=== PATIENT | female | born 1975 | race Caucasian/White ===

== ENCOUNTER → 2023-07-20 08:08 | Outpatient (REF) | payer OTHER, SELFPAY | LOC: HWRAD 08:08 | PROVIDERS: ATTENDING PHYSICIAN Neurological Surgery; FAMILY PHYSICIAN Family Medicine | DX: D32.0 Benign neoplasm of cerebral meninges (principal) | CPT/HCPCS: 70450 ==

== ENCOUNTER 2024-07-14 15:19 | Emergency (ER) | payer OTHER, SELFPAY ==
[2024-07-14 15:21] VITALS: BP 138/88
[2024-07-14 15:38] LABS: % Basophils 0.4 % (0-2); % Eosinophils 1.6 % (0-6); % Immature Granulocytes 0.3 % (0-0.5); % Lymphocytes 33.1 % (20.5-51.1); % Monocytes 6.5 % (1.7-9.3); % Neutrophils 58.1 % (42.2-75.2); Absolute Eosinophils 0.1 10^3/uL (0-0.7); Absolute Lymphocytes 2.3 10^3/uL (1.2-3.4); Absolute Monocytes 0.4 10^3/uL (0.1-0.6); Hematocrit 39.5 % (37.0-47.0); Hemoglobin 13.7 g/dL (12.0-16.0); Mean Corp Hgb Conc. 34.7 g/dL (33.0-37.0); Mean Corpuscular Hgb 28.9 pg (27.0-31.0); Mean Corpuscular Volume 83.3 fL (81.0-99.0); Mean Platelet Volume 10.2 fL (7.4-10.4); Nucleated Red Blood Cells % 0 %; Platelet Count 230 10^3/uL (130-400); Red Blood Cell Count 4.74 10^6/uL (4.20-5.40); Red Cell Dist. Width 12.1 % (11.5-14.5); White Blood Cell Count 6.8 10^3/uL (4.8-10.8)
[2024-07-14 15:54] LABS: ALT (SGPT) 24 U/L (0-35); AST (SGOT) 21 U/L (14-36); Albumin 4.6 g/dl (3.5-5.0); Alkaline Phosphatase 75 U/L (38-126); Blood Urea Nitrogen 13 mg/dl (7-17); Calcium 9.4 mg/dl (8.4-10.2); Carbon Dioxide 25 mmol/L (22-30); Chloride 108 mmol/L (98-107); Glucose 93 mg/dl (70-99); Potassium 4.4 mmol/L (3.5-5.1); Sodium 140 mmol/L (135-145); Total Bilirubin 0.7 mg/dl (0.2-1.3); Total Protein 7.2 g/dl (6.3-8.2); eGFR > 60.00
[2024-07-14 16:02] LABS: Troponin I < 0.012 ng/ml
--- NOTE | 2024-07-14 19:02 | ED.GENMED ---
History of Present Illness
General
Chief Complaint: Cardiac Symptoms
Source: patient
Exam Limitations: none
Time Seen by Provider: 07/14/24 18:56
History of Present Illness
History of Present Illness:
See MDM
Past History
Past History
ED Past Medical History: GERD
ED Past Surgical History:
Social History
Tobacco: Non-smoker
Living: with family
Employment: Employed
Phy Exam
Physical Exam
Physical Exam:
See MDM
Course
Orders/Labs/Results
Orders:
Orders
07/14/24 15:23
Electrocardiogram (*1) Urgent
Reason for Study: Chest Pain
Chest [CR Chest - 2 Views ] Urgent
Comment:
Reason For Exam: chest pain
07/14/24 15:24
EKG- Treatment ONCE
07/14/24 15:30
Complete Blood Count/With Diff Urgent
Comprehensive Metabolic Panel Urgent
Troponin I Urgent
Abnormal Lab Results
07/14/24
15:30
Chloride 108 H mmol/L
(98-107)
07/14/24 15:30
07/14/24 15:30
Vital Signs
Initial and Last Documented VS:
Initial Vital Signs
Temp Pulse Resp BP Pulse Ox
98.2 F 58 20 138/88 99
07/14/24 15:21 07/14/24 15:21 07/14/24 15:21 07/14/24 15:21 07/14/24 15:21
Last Documented Vital Signs
Temp Pulse Resp BP Pulse Ox
98.4 F 66 18 115/70 98
07/14/24 19:55 07/14/24 19:55 07/14/24 19:55 07/14/24 19:55 07/14/24 19:55
MDM/Problems Addressed
Differential Diagnosis Includes:
HPI and MDM Narrative:
48-year-old female presenting for 3 weeks of left chest burning sensation. Patient does acknowledge that it is mostly at nighttime and awake throughout but she does state it is random throughout the day 2. Symptoms are not related to exertion.
She endorses improvement of symptoms with some exertion. Given the ongoing symptoms, she came in the emergency department for evaluation. She does have PCP follow-up but not until a few more weeks. On exam, she is well-appearing nontoxic. EKG
done prior to my assessment showing a sinus bradycardia without ischemic changes. Blood work and troponin were ordered which showed no clinically relevant abnormalities
I started to question reflux more but patient states this did not feel like her reflux. Will obtain chest x-ray but if that is also normal, will have her follow-up as an outpatient
Physical exam
General: Well appearing and non-toxic
HEENT: protecting airway
Neck: appears supple
CV: No evidence of cyanosis. Regular rate and rhythm
Resp: No accessory muscle use. Lungs clear
Abd: Non-distended
Extremities: No deformities. No leg edema
Neuro: alert
Psych: Normal affect
Skin: Intact
Problems Addressed including Acute and Chronic Conditions affecting care:
1. Left chest burning
Acuity: acute
Prognosis: stable
Details: EKG and troponin negative. Will obtain chest x-ray.
Updates
Chest x-ray clear. Patient dominic well-appearing nontoxic. She feels comfortable going home. Discussed return precautions
Differential Diagnosis (but not limited to): noncardiac chest pain, GERD,Muscle strain
Testing considered: D-dimer but she is neither tachycardic nor hypoxic
Drug therapy (if applicable): OTC meds, please see d/c instruction regarding Rx drugs
Amount and/or Complexity of Data Reviewed
Clinical info obtained from: Patient
External data reviewed: N/A
Labs I independently reviewed (but not limited to): Troponin normal
Radiology: N/A
Pulse Ox: not hypoxic
EKG independently reviewed: Sinus rhythm, normal axis, no STEMI
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
Critical Care: N/A
Risk of Complication:
Social Determinants of health: Good social support
Discussed with other providers: N/A
Escalation of Care includes Admit/Obs: After being observed in the Emergency Department, pt stable for discharge.
Occasional wrong word or 'sound a like' substitutions may have occurred due to the inherent limitations of voice recognition software. Read the chart carefully and recognize, using context, where substitutions have occurred.
*Critical Care Note
Total Time (30-74mins, 75-104mins- exclusive of procedures): Not Applicable
ED Attending Note
-
Portions of this chart may have been created with voice recognition software.� Occasional wrong word or��sound alike� substitutions may have occurred due to the inherent limitations of voice recognition software.
Discharge Plan
Departure
Patient Disposition: Home (Routine Discharge)
Date of Disposition: 07/14/24
Time of Disposition: 20:17
Patient with high blood pressure during this ER visit?: No
Discharge Problem:
Burning chest pain
Prescriptions:
No Action
metaxalone [Skelaxin] 800 MG tablet
800 mg PO TIDPRN PRN (Reason: pain/spasm) Qty: 15 0RF
Referrals:
Patel Vincent MD [Active] -
Emanuel Dove DO [Family Provider] -
Activity Restrictions/Additional Instructions:
Please return for any worsening symptoms.
You may return at any time if you have further concerns.
Please follow up with your doctor at the first available appointment, preferably this week.
Please make an appointment to see the shipping lead.
Thank you for choosing [facility].
Interventions
Interventions:
*Risk Screen - Suicide Last Done: 07/14/24 19:56
*General Assessment Last Done: 07/14/24 15:21
*Neglect/Abuse Screening Last Done: 07/14/24 19:56
*ED- Fall Risk Assessment Last Done: 07/14/24 19:56
*ED COVID-19 Vaccine History Last Done: 07/14/24 19:56
ED- Pulmonary Assessment Last Done: 07/14/24 19:56
ED- Cardiac Assessment Last Done: 07/14/24 19:56
Discharge Date and Time
Print Language: LATVIAN
[2024-07-14 19:55] VITALS: BP 115/70
== END 2024-07-14 20:49 | disposition home or self-care (01) ==
LOC: EMR 15:19
PROVIDERS: EMERGENCY PHYSICIAN Student in an Organized Health Care Education/Training Program; FAMILY PHYSICIAN Family Medicine
DX: R07.9 Chest pain, unspecified (principal); R00.1 Bradycardia, unspecified; R20.8 Other disturbances of skin sensation
CPT/HCPCS: 99285; 71046; 80053; 84484; 85025; 93005

== ENCOUNTER 2024-12-21 15:02 | Emergency (ER) | payer OTHER, SELFPAY ==
[2024-12-21 15:04] VITALS: BP 123/88
--- NOTE | 2024-12-21 18:38 | ED.GENMED ---
History of Present Illness
General
Chief Complaint: Fall
Source: patient and spouse
Time Seen by Provider: 12/21/24 18:02
History of Present Illness
History of Present Illness:
49-year-old female with past medical history of migraines presents to the emergency department for evaluation after she accidentally fell yesterday on the stairs falling backwards striking the back of her head on the ground and injuring her right
shoulder. Patient states she felt very dazed following the event but notes she did not lose consciousness. She has since had a mild headache, mild fatigue and some nausea. She denies any vomiting, severe headache, focal weakness or numbness or
any other injuries. Patient notes that she is having trouble range of motion in the right shoulder, recently recovered from a previous injury to the right shoulder that had diminished range of motion. Patient is not on any anticoagulants. Denies
any previous history of head injury.
Past History
Past History
ED Past Medical History: GERD
ED Past Surgical History: and Gynecological
Social History
Tobacco: Non-smoker
Alcohol: None
Drug: None
Living: with family
Employment: Employed
Review of Systems
Review of Systems
All Other Systems: ROS reviewed and negative except as documented in HPI and ROS
Phy Exam
Physical Exam
Physical Exam:
GENERAL: Alert , in no apparent distress
EYE: conjunctiva clear
Head: Normocephalic atraumatic
NECK: Supple,
ENT: mmm.
LUNGS: no acute respiratory distress
NEUROLOGICAL: Alert and oriented
SKIN: Warm and dry, skin intact.
MUSCULOSKELETAL: Right upper extremity: No obvious deformity, erythema, edema, ecchymosis, abrasions or lacerations. No focal areas of tenderness. Patient allows for passive range of motion up to about 90 degrees before pain starts getting more
intense. She allows for full active and passive range of motion of the elbow, wrist and digits with no pain. Extremity is otherwise warm and well-perfused.
PSYCH: Normal and appropriate interaction.
Scores
Heart Failure Risk
Heart Failure Risk Score: Not Applicable
Heart Score for Chest Pain Patients
STEMI patient?: Not applicable
Withdrawal Assessment of Alcohol
Withdrawal Assessment Completed?: Not applicable
Course
Orders/Labs/Results
Orders:
Orders
12/21/24 18:23
Sling Right-Treatment ONCE
CR Shoulder, Trauma - Right Urgent
Comment:
Reason For Exam: fall, pain
Vital Signs
Initial and Last Documented VS:
Initial Vital Signs
Pulse Resp BP Pulse Ox
76 16 123/88 100
12/21/24 15:04 12/21/24 15:04 12/21/24 15:04 12/21/24 15:04
Last Documented Vital Signs
Pulse Resp BP Pulse Ox
76 16 123/88 100
12/21/24 15:04 12/21/24 15:04 12/21/24 15:04 12/21/24 18:40
MDM/Problems Addressed
Differential Diagnosis Includes:
Concussion
Contusion
ICH
Calvarial Fracture
Shoulder sprain
Humeral fracture
AC sprain
Clavicle fracture
MDM/Problems Addressed:
49-year-old female presenting to the ER for evaluation following an accidental fall yesterday noting she slipped down couple of steps striking the back of her head and right shoulder on the ground. No LOC, no vomiting, no visual changes no
anticoagulant use. We had extensive conversation about risk versus benefit of CT imaging and with shared decision making the patient ultimately decided she did not want to pursue CT imaging at this time which I do think is reasonable given the lack
of abnormal aforementioned symptoms. Will obtain an x-ray for further evaluation of the shoulder. Sling ordered. Outpatient ortho follow up
*Radiology
Radiology exam reviewed: preliminary read by ED provider (No fracture, no dislocation)
*Pulse Oximetry
SaO2: 100
Oxygen Mode of Delivery: Room air
Patient hypoxic: no
*Critical Care Note
Total Time (30-74mins, 75-104mins- exclusive of procedures): Not Applicable
Patient Management
Escalation/DeEscalation of care consider admission/obs:
Patient stable for discharge home, aware of return precautions.
ED Attending Note
-
Portions of this chart may have been created with voice recognition software.� Occasional wrong word or��sound alike� substitutions may have occurred due to the inherent limitations of voice recognition software.
Discharge Plan
Departure
Patient Disposition: Home (Routine Discharge)
Date of Disposition: 12/21/24
Time of Disposition: 18:39
Patient with high blood pressure during this ER visit?: No
Discharge Problem:
Fall down stairs, Concussion, Sprain of right shoulder
Instructions: Concussion, Adult (DC)
Prescriptions:
No Action
metaxalone [Skelaxin] 800 MG tablet
800 mg PO TIDPRN PRN (Reason: pain/spasm) Qty: 15 0RF
Referrals:
Emanuel Dove DO [Family Provider, Family Practice]
Stand Alone Forms: Return to Work
Interventions
Interventions:
*Risk Screen - Suicide Last Done: 12/21/24 18:46
*General Assessment Last Done: 12/21/24 18:46
*Neglect/Abuse Screening Last Done: 12/21/24 18:46
*ED COVID-19 Vaccine History Last Done: 12/21/24 18:46
*ED Influenza Vaccine History Last Done: 12/21/24 18:46
ED-Musculoskeletal Assessment Last Done: 12/21/24 18:48
ED- Neurological Assessment Last Done: 12/21/24 18:46
ED-Skin Assessment Last Done: 12/21/24 18:48
Discharge Date and Time
Print Language: TAJIK
== END 2024-12-21 18:49 | disposition home or self-care (01) ==
LOC: EMR 15:02
PROVIDERS: EMERGENCY PHYSICIAN Student in an Organized Health Care Education/Training Program; FAMILY PHYSICIAN Family Medicine
DX: S06.0X0A Concussion without loss of consciousness, initial encounter (principal); R11.0 Nausea; R53.83 Other fatigue; S43.401A Unspecified sprain of right shoulder joint, initial encounter; W10.9XXA Fall (on) (from) unspecified stairs and steps, initial encounter; G43.909 Migraine, unspecified, not intractable, without status migrainosus; K21.9 Gastro-esophageal reflux disease without esophagitis
CPT/HCPCS: 99283; 73030